=== PATIENT | female | born 1985 | race Hispanic/Latino ===

== ENCOUNTER 2017-03-13 22:39 | Emergency (ER) | payer BC ==
[2017-03-13 23:47] LABS: Hemoglobin 14.2 gm/dl (10.1-14.3); Mean Corpuscular HGB Conc 33 % (30-34); Mean Corpuscular Hemoglobin 31 pg (28-32); Mean Corpuscular Volume 93 fl (79-97); Platelet Count 243 K/mm3 (140-440); Red Blood Count 4.62 M/mm3 (3.65-5.03); Red Cell Distribution Width 12.6 % (13.2-15.2); White Blood Count 12.4 K/mm3 (4.5-11.0)
[2017-03-14] LABS: Anion Gap 18 mmol/L; Blood Urea Nitrogen 11 mg/dL (7-17); Calcium 9.6 mg/dL (8.4-10.2); Carbon Dioxide 25 mmol/L (22-30); Chloride 97.8 mmol/L (98-107); Glucose 92 mg/dL (65-100); Potassium 4.3 mmol/L (3.6-5.0); Sodium 136 mmol/L (137-145)
[2017-03-14 06:28] LABS: Bilirubin,Urine NEG (Negative); Blood,Urine SM (Negative); Ketones,Urine NEG (Negative); Leukocyte Esterase,Urine NEG (Negative); Mucus,Urine FEW /HPF; Nitrite,Urine NEG (Negative); Protein,Urine <15 mg/dL mg/dL (Negative); Urobilinogen,Urine < 2.0 mg/dL (<2.0)
--- NOTE | 2017-03-14 07:26 | XRay Report ---
Chest 2 views: History: Persistent cough. Findings: Normal cardiomediastinal silhouette. Trachea is midline. No consolidation, pneumothorax or pleural effusion. Impression: No acute cardiopulmonary findings.
[2017-03-14] MEDS ORDERED: DUONEB 0.5 MG-3 MG/3 ML SOLN IH ONE (07:35)
[2017-03-14] MEDS ORDERED: BACTRIM DS PO ONE (07:36)
--- NOTE | 2017-03-14 07:37 | Emergency Department Report ---
HPI - General Chief Complaint: Dental/Oral Time Seen by Provider: 03/14/17 07:07 - HPI HPI: This is a 31-year-old female presents to the emergency department with the complaints of a infected right lower wisdom tooth, productive cough, and concerned that infection has gone from her tooth into her chest. She denies any chest pain but sometimes says that the persistent cough will cause some chest wall discomfort. She denies any fever, nausea, vomiting. She does not have a primary care doctor or a dentist. She went to [facility] 3 weeks ago for similar symptoms and says they put her on antibiotics but otherwise did not check out her chest. No recent travel or sick contacts at home. She is a tobacco smoker. She has taken some Excedrin recently for her symptoms without any relief. She has a past medical history of hepatitis C. ED Past Medical Hx - Past Medical History Hx Liver Disease: Yes (hepatitis C) - Surgical History Additional Surgical History: eye surgery,right - Social History Smoking Status: Never Smoker Substance Use Type: Marijuana - Medications Home Medications: Home Medications Medication Instructions Recorded Confirmed Last Taken Type ALBUTEROL Inhaler [ProAir HFA 2 puff IH QID PRN #1 inhalation 03/14/17 Unknown Rx Inhaler] Sulfamethoxazole/Trimethoprim 1 each PO BID #14 tablet 03/14/17 Unknown Rx [Bactrim DS TAB] traMADol [Ultram] 50 mg PO Q6HR PRN #10 tablet 03/14/17 Unknown Rx ED Review of Systems ROS: Stated complaint: CHEST PAIN/TOOTHACHE Other details as noted in HPI Comment: All other systems reviewed and negative Constitutional: denies: chills, fever Eyes: denies: eye pain, eye discharge, vision change ENT: dental pain. denies: throat pain Respiratory: cough. denies: wheezing Cardiovascular: denies: palpitations, edema Gastrointestinal: denies: abdominal pain, nausea, diarrhea Genitourinary: denies: urgency, dysuria, discharge Musculoskeletal: denies: back pain, joint swelling, arthralgia Skin: denies: rash, lesions Neurological: denies: headache, weakness, paresthesias Physical Exam - Physical Exam Vital Signs: Vital Signs 03/13/17 03/14/17 03/14/17 23:09 06:37 07:11 Temperature 98.3 F 97.6 F Pulse Rate 97 H 85 74 Respiratory 18 20 18 Rate Blood Pressure 131/97 133/102 Blood Pressure 141/93 [Left] O2 Sat by Pulse 100 98 99 Oximetry Physical Exam: GENERAL: The patient is well-developed well-nourished. HEENT: Normocephalic. Atraumatic. Extraocular motions are intact. Patient has moist mucous membranes. Pupils equal reactive to light bilaterally. Patient has a visible right lower wisdom tooth that is pushing through the gumline and pressing against the posterior molar. There is no visible or palpable abscess. No drooling or trismus. Oropharynx is otherwise clear. NECK: Supple. Trachea is midline. CHEST/LUNGS: Clear to auscultation. Occasional productive cough heard during examination. No tachypnea or accessory muscle use. There is no respiratory distress noted. HEART/CARDIOVASCULAR: Regular. There is no tachycardia. There is no gallop rub or murmur. ABDOMEN: Abdomen is soft, nontender. Patient has normal bowel sounds. There is no abdominal distention. SKIN: Skin is warm and dry. NEURO: The patient is awake, alert, and oriented. The patient is cooperative. The patient has no focal neurologic deficits. The patient has normal speech. MUSCULOSKELETAL: There is no tenderness or deformity. There is no limitation range of motion. There is no evidence of acute injury. ED Course Vital Signs 03/13/17 03/14/17 03/14/17 23:09 06:37 07:11 Temperature 98.3 F 97.6 F Pulse Rate 97 H 85 74 Respiratory 18 20 18 Rate Blood Pressure 131/97 133/102 Blood Pressure 141/93 [Left] O2 Sat by Pulse 100 98 99 Oximetry ED Medical Decision Making - Lab Data Result diagrams: 03/13/17 23:22 03/13/17 23:22 - EKG Data -: EKG Interpreted by Me EKG shows normal: sinus rhythm, axis, intervals, QRS complexes, ST-T waves Rate: normal - EKG Data When compared to previous EKG there are: previous EKG unavailable Interpretation: normal EKG - Radiology Data Radiology results: image reviewed interpreted by me: Chest x-ray did not show any acute process. Heart is normal shape and size. No effusions. No pneumothorax. No signs of pneumonia seen. - Medical Decision Making 31-year-old female presents the emergency department with complaint of dental pain and concern for tooth abscess and concern that this infection may have made its way to her chest. She is a tobacco smoker. EKG was done that is normal without ST elevation [place], ischemia or dysrhythmia. Chest x-ray does not show any acute process including no pneumonia, pneumothorax or pleural effusions. Labs are unremarkable and do not show any etiology of her symptoms. While I do see the patient's wisdom tooth there is no visible or palpable abscess. She does not have significant bronchospasm there might be a very mild wheeze on expiration. She was given a breathing treatment here. The patient will be placed on Bactrim as it would cover her for both a dental abscess and any underlying pneumonia that is yet to be found. However most like the patient has an upper respiratory infection and/or bronchitis. Vital signs stable throughout her ED course including being afebrile. She appears safe for discharge home at this time. She was given referrals for dentistry and primary care. She will return to the ER if any worsening of her symptoms or any acute distress. - Differential Diagnosis URI, pneumonia, tooth abscess, bronchitis Critical Care Time: No Critical care attestation.: If time is entered above; I have spent that time in minutes in the direct care of this critically ill patient, excluding procedure time. ED Disposition Clinical Impression: Pain, dental, Chest congestion, Bronchitis Disposition: DC-01 TO HOME OR SELFCARE Is pt being admited?: No Condition: Stable Instructions: Acute Bronchitis (ED), Toothache (ED) Additional Instructions: Please follow-up with a primary care doctor in the next 3 days. Return to the emergency department with any worsening of your symptoms or any acute distress. You've been prescribed a medication that is sedating. Therefore this medication cannot be mixed with alcohol, or taken prior to driving, working, or being responsible for children. Prescriptions: ALBUTEROL Inhaler [ProAir HFA Inhaler] 2 puff IH QID PRN #1 inhalation PRN Reason: Shortness Of Breath Sulfamethoxazole/Trimethoprim [Bactrim DS TAB] 1 each PO BID #14 tablet traMADol [Ultram] 50 mg PO Q6HR PRN #10 tablet PRN Reason: Pain Referrals: [facility] [Outside] - 3-5 Days [facility] [Outside] - 3-5 Days [facility] [Outside] - 3-5 Days [facility] [Outside] - 3-5 Days Forms: Work/School Release Form(ED) Time of Disposition: 08:53
[2017-03-14] MEDS ORDERED: NORCO 5/325 PO ONE (08:27)
[2017-03-14 09:19] VITALS: BP 132/59
== END 2017-03-14 09:20 | disposition home or self-care (01) ==
LOC: ED 22:39
DX: J40 Bronchitis, not specified as acute or chronic (principal); K08.89 Other specified disorders of teeth and supporting structures; R09.89 Other specified symptoms and signs involving the circulatory and respiratory systems; F12.90 Cannabis use, unspecified, uncomplicated
CPT/HCPCS: 36415; 71020; 80048; 81001; 81025; 84484; 85027; 93005; 93010; 94640